=== PATIENT | male | born 1960 | race Caucasian/White ===

== ENCOUNTER 2017-12-12 11:39 | Inpatient (IN) ==
[2017-12-12] MEDS ORDERED: ONDANSETRON 4 MG/2 ML VIAL IV PRN (15:38)
[2017-12-12] MEDS ORDERED: MORPHINE 4 MG/1 ML VIAL IV PRN (15:38)
[2017-12-12] MEDS: hydrALAZINE 20 MG/1 ML VIAL IV PRN (16:31)
[2017-12-12] MEDS: CARVEDILOL 6.25 MG TABLET PO SCH ×2 (16:31→20:57)
[2017-12-12] MEDS: ACETAMINOPHEN 325 MG TABLET PO PRN ×2 (16:37→20:56)
[2017-12-12 17:06] LABS: Basophils # 0.1 10*3/uL (0.0-0.2); Basophils % 0.8 % (0.0-0.8); Eosinophils # 0.1 10*3/uL (0.0-0.87); Eosinophils % 1.5 % (0.00-10.9); Hematocrit 43.2 VOL% (42.0-52.0); Hemoglobin 14.5 GM/DL (14.0-18.0); Immature Granulocytes % 0.3 %; Immature Granulocytes Absolute 0.03 #; Lymphocytes # 1.1 10*3/uL (1.4-4.0); Lymphocytes % 12.2 % (21.2-54.2); Mean Corpuscular HGB Conc 33.6 GM/DL (32-36); Mean Corpuscular Hemoglobin 30 PG (27-34); Mean Corpuscular Volume 89.1 FL (87-102); Mean Platelet Volume 12.3 FL (9.6-12.0); Monocytes # 0.7 10*3/uL (0.11-0.8); Monocytes % 7.4 % (1.7-12.7); Neutrophils # 7.1 10*3/uL (1.4-7.4); Neutrophils % 77.8 % (38.7-73.9); Platelet Count 190 T/CUMM (130-400); Red Blood Count 4.85 MC/CUMM (3.8-5.5); Red Cell Distribution Width 13.9 % (9.3-17.3); White Blood Count 9.1 T/CUMM (4-12)
[2017-12-12 17:21] LABS: Apearance,Urine CLEAR (Clear); Bilirubin,Urine Negative (Negative); Blood, Urine Negative (Negative); Glucose,Urine (UA) Negative (Negative); Hyaline Casts,Urine 3 /LPF (0-3); Ketones,Urine Negative (Negative); Nitrite,Urine Negative (Negative); Protein,Urine Negative; RBC,Urine <1 /HPF (0-4); Urine Color Straw (Yellow); Urine Specific Gravity 1.005 (1.001-1.035); Urine Urobilinogen < 2.0 EU/DL (0.2-1.0); WBC,Urine 1 /HPF (0-6)
[2017-12-12 17:31] LABS: CKMB % 1.9 %
[2017-12-12 17:32] LABS: Troponin I Only 0.087 NG/ML (0.00-0.045)
[2017-12-12 17:38] LABS: Bilirubin,Total 1.4 MG/DL (0.2-1.0); Calcium 8.6 MG/DL (8.5-10.1); Osmolality,Calculated 288.1 MOS/KG (273-304); Potassium 3.4 MMOL/L (3.5-5.1); Risk Ratio 3.13; Thyroid Stimulating Hormone 2.91 uIU/ml (0.358-3.74); Total Protein 6.6 G/DL (6.4-8.3)
[2017-12-12] MEDS ORDERED: MAGNESIUM SULF RIDER 2 GM in PREMIX 1 EACH IV PRN (18:13)
[2017-12-12] MEDS ORDERED: POTASSIUM CHLORIDE RIDER 10 MEQ in PREMIX 1 EACH IV PRN (18:13)
[2017-12-12] MEDS ORDERED: MAGNESIUM SULF RIDER 4 GM in PREMIX 1 EACH IV PRN (18:13)
[2017-12-12] MEDS: POTASSIUM CHLORIDE 20 MEQ TABLET PO PRN ×2 (18:18→23:05)
[2017-12-12] MEDS: LISINOPRIL 5 MG TABLET PO SCH (20:57)
[2017-12-12] MEDS: ACETAMINOPHEN 500 MG TABLET PO SCH (21:54)
[2017-12-12 22:53] LABS: CKMB % 1.7 %
[2017-12-12 22:57] LABS: Troponin I Only 0.089 NG/ML (0.00-0.045)
[2017-12-13] MEDS: POTASSIUM CHLORIDE 20 MEQ TABLET PO PRN (00:55)
[2017-12-13] MEDS: ACETAMINOPHEN 500 MG TABLET PO SCH ×4 (04:58→21:11)
[2017-12-13 05:45] LABS: Basophils # 0.1 10*3/uL (0.0-0.2); Eosinophils # 0.3 10*3/uL (0.0-0.87); Eosinophils % 3.1 % (0.00-10.9); Hematocrit 44.3 VOL% (42.0-52.0); Hemoglobin 14.5 GM/DL (14.0-18.0); Immature Granulocytes % 0.5 %; Immature Granulocytes Absolute 0.04 #; Lymphocytes # 0.9 10*3/uL (1.4-4.0); Lymphocytes % 10.7 % (21.2-54.2); Mean Corpuscular HGB Conc 32.7 GM/DL (32-36); Mean Corpuscular Hemoglobin 30 PG (27-34); Mean Corpuscular Volume 91.5 FL (87-102); Mean Platelet Volume 12.2 FL (9.6-12.0); Monocytes # 0.7 10*3/uL (0.11-0.8); Monocytes % 7.9 % (1.7-12.7); Neutrophils # 6.4 10*3/uL (1.4-7.4); Neutrophils % 76.8 % (38.7-73.9); Platelet Count 227 T/CUMM (130-400); Red Blood Count 4.84 MC/CUMM (3.8-5.5); White Blood Count 8.4 T/CUMM (4-12)
[2017-12-13 06:12] LABS: CKMB % 1.9 %
[2017-12-13 06:13] LABS: Troponin I Only 0.066 NG/ML (0.00-0.045)
[2017-12-13 06:17] LABS: Calcium 8.6 MG/DL (8.5-10.1); Osmolality,Calculated 289.1 MOS/KG (273-304); Potassium 4.8 MMOL/L (3.5-5.1)
[2017-12-13] MEDS: ENOXAPARIN 40 MG/0.4 ML SYRINGE SUBCUT SCH (08:23)
[2017-12-13] MEDS: ASPIRIN 325 MG TABLET PO SCH (08:23)
[2017-12-13] MEDS: MULTIVITAMIN (CENTRUM) TABLET PO SCH (08:23)
[2017-12-13] MEDS: CARVEDILOL 6.25 MG TABLET PO SCH ×2 (08:23→21:11)
[2017-12-13] MEDS: PANTOPRAZOLE 40 MG TABLET PO SCH (08:23)
[2017-12-13] MEDS: LISINOPRIL 5 MG TABLET PO SCH ×2 (08:23→21:11)
[2017-12-13] MEDS: FUROSEMIDE 40 MG/4 ML VIAL IV SCH ×2 (08:25→15:55)
[2017-12-13] MEDS: hydrALAZINE 20 MG/1 ML VIAL IV PRN (16:34)
[2017-12-14] MEDS: ACETAMINOPHEN 500 MG TABLET PO SCH ×4 (05:07→21:37)
[2017-12-14 05:59] LABS: Basophils # 0.1 10*3/uL (0.0-0.2); Basophils % 0.9 % (0.0-0.8); Eosinophils # 0.2 10*3/uL (0.0-0.87); Eosinophils % 2.8 % (0.00-10.9); Hematocrit 45.8 VOL% (42.0-52.0); Hemoglobin 14.6 GM/DL (14.0-18.0); Immature Granulocytes % 0.5 %; Immature Granulocytes Absolute 0.04 #; Lymphocytes % 12.9 % (21.2-54.2); Mean Corpuscular HGB Conc 31.9 GM/DL (32-36); Mean Corpuscular Hemoglobin 30 PG (27-34); Mean Corpuscular Volume 93.3 FL (87-102); Mean Platelet Volume 11.4 FL (9.6-12.0); Monocytes # 0.6 10*3/uL (0.11-0.8); Monocytes % 8.1 % (1.7-12.7); Neutrophils # 5.9 10*3/uL (1.4-7.4); Neutrophils % 74.8 % (38.7-73.9); Platelet Count 239 T/CUMM (130-400); Red Blood Count 4.91 MC/CUMM (3.8-5.5); Red Cell Distribution Width 13.9 % (9.3-17.3); White Blood Count 7.9 T/CUMM (4-12)
[2017-12-14 06:21] LABS: Calcium 8.4 MG/DL (8.5-10.1); Osmolality,Calculated 289.3 MOS/KG (273-304); Potassium 4.2 MMOL/L (3.5-5.1)
[2017-12-14] MEDS: CARVEDILOL 6.25 MG TABLET PO SCH (09:09)
[2017-12-14] MEDS: LISINOPRIL 5 MG TABLET PO SCH ×2 (09:09→21:37)
[2017-12-14] MEDS: MULTIVITAMIN (CENTRUM) TABLET PO SCH (09:09)
[2017-12-14] MEDS: ASPIRIN 325 MG TABLET PO SCH (09:09)
[2017-12-14] MEDS: PANTOPRAZOLE 40 MG TABLET PO SCH (09:10)
[2017-12-14] MEDS: ENOXAPARIN 40 MG/0.4 ML SYRINGE SUBCUT SCH (09:16)
[2017-12-14] MEDS: FUROSEMIDE 40 MG/4 ML VIAL IV SCH ×2 (09:18→15:51)
[2017-12-14] MEDS ORDERED: MAGNESIUM SULF RIDER 2 GM in PREMIX 1 EACH IV PRN (12:34)
[2017-12-14] MEDS ORDERED: POTASSIUM CHLORIDE RIDER 10 MEQ in PREMIX 1 EACH IV PRN (12:34)
[2017-12-14 13:34] LABS: CKMB % 1.7 %; Troponin I Only 0.042 NG/ML (0.00-0.045)
[2017-12-14] MEDS: NITROGLYCERIN 2% OINT 1 INCH/GM PACK TOP SCH (17:20)
[2017-12-14 19:50] LABS: Troponin I Only 0.045 NG/ML (0.00-0.045)
[2017-12-14] MEDS: METOPROLOL TARTRATE 25 MG TABLET PO SCH (21:37)
[2017-12-15] MEDS: NITROGLYCERIN 2% OINT 1 INCH/GM PACK TOP SCH ×3 (00:27→11:02)
[2017-12-15 01:02] LABS: Basophils # 0.1 10*3/uL (0.0-0.2); Basophils % 1.1 % (0.0-0.8); Eosinophils # 0.3 10*3/uL (0.0-0.87); Eosinophils % 3.9 % (0.00-10.9); Hematocrit 44.8 VOL% (42.0-52.0); Hemoglobin 14.5 GM/DL (14.0-18.0); Immature Granulocytes % 0.4 %; Immature Granulocytes Absolute 0.03 #; Lymphocytes # 1.2 10*3/uL (1.4-4.0); Lymphocytes % 15.2 % (21.2-54.2); Mean Corpuscular HGB Conc 32.4 GM/DL (32-36); Mean Corpuscular Hemoglobin 30 PG (27-34); Mean Corpuscular Volume 93.1 FL (87-102); Mean Platelet Volume 11.4 FL (9.6-12.0); Monocytes # 0.8 10*3/uL (0.11-0.8); Monocytes % 10.1 % (1.7-12.7); Neutrophils # 5.6 10*3/uL (1.4-7.4); Neutrophils % 69.3 % (38.7-73.9); Platelet Count 252 T/CUMM (130-400); Red Blood Count 4.81 MC/CUMM (3.8-5.5); Red Cell Distribution Width 13.7 % (9.3-17.3); White Blood Count 8.1 T/CUMM (4-12)
[2017-12-15 01:29] LABS: Troponin I Only 0.038 NG/ML (0.00-0.045)
[2017-12-15 01:32] LABS: Calcium 8.1 MG/DL (8.5-10.1); Osmolality,Calculated 286.3 MOS/KG (273-304)
[2017-12-15] MEDS: ACETAMINOPHEN 500 MG TABLET PO SCH ×4 (04:30→21:01)
[2017-12-15] MEDS ORDERED: DIAZEPAM 5 MG TABLET PO ONE ×2 (06:00→13:30)
[2017-12-15] MEDS ORDERED: diphenhydrAMINE CAP 25 MG CAPSULE PO ONE ×2 (06:00→13:30)
[2017-12-15] MEDS: ASPIRIN 325 MG TABLET PO SCH (09:18)
[2017-12-15] MEDS: ENOXAPARIN 40 MG/0.4 ML SYRINGE SUBCUT SCH (09:18)
[2017-12-15] MEDS: PANTOPRAZOLE 40 MG TABLET PO SCH (09:19)
[2017-12-15] MEDS: MULTIVITAMIN (CENTRUM) TABLET PO SCH (09:19)
[2017-12-15] MEDS: LISINOPRIL 5 MG TABLET PO SCH ×2 (09:19→21:00)
[2017-12-15] MEDS: METOPROLOL TARTRATE 25 MG TABLET PO SCH (09:19)
[2017-12-15] MEDS: FUROSEMIDE 40 MG/4 ML VIAL IV SCH (09:20)
[2017-12-15] MEDS ORDERED: diphenhydrAMINE CAP 50 MG CAPSULE ONE (13:20)
[2017-12-15] MEDS ORDERED: DIAZEPAM 5 MG TABLET ONE (13:21)
[2017-12-15] MEDS ORDERED: HEPARIN/NACL 0.9% 2 UNITS/ML 1,000 ML IV ONE (14:05)
[2017-12-15] MEDS ORDERED: LIDOCAINE 1% 20 ML VIAL ONE (14:05)
[2017-12-15] MEDS ORDERED: fentaNYL 100 MCG/2 ML VIAL ONE (14:27)
[2017-12-15] MEDS ORDERED: MIDAZOLAM 2 MG/2 ML VIAL ONE ×2 (14:27→14:46)
[2017-12-15] MEDS ORDERED: hydrALAZINE 20 MG/1 ML VIAL ONE (15:17)
[2017-12-15] MEDS ORDERED: ACETAMINOPHEN/CODEINE 300-30 MG TABLET PO PRN (15:18)
[2017-12-15] MEDS ORDERED: fentaNYL 100 MCG/2 ML VIAL IV PRN (15:18)
[2017-12-15] MEDS: CARVEDILOL 12.5 MG TABLET PO SCH (21:01)
[2017-12-16] MEDS: ACETAMINOPHEN 500 MG TABLET PO SCH ×2 (04:53→09:22)
[2017-12-16 06:00] LABS: Basophils # 0.1 10*3/uL (0.0-0.2); Basophils % 0.9 % (0.0-0.8); Eosinophils # 0.2 10*3/uL (0.0-0.87); Eosinophils % 2.5 % (0.00-10.9); Hematocrit 45.9 VOL% (42.0-52.0); Hemoglobin 14.7 GM/DL (14.0-18.0); Immature Granulocytes % 0.3 %; Immature Granulocytes Absolute 0.02 #; Lymphocytes # 0.7 10*3/uL (1.4-4.0); Lymphocytes % 11.1 % (21.2-54.2); Mean Corpuscular Hemoglobin 29 PG (27-34); Mean Corpuscular Volume 91.6 FL (87-102); Mean Platelet Volume 11.7 FL (9.6-12.0); Monocytes # 0.7 10*3/uL (0.11-0.8); Monocytes % 10.9 % (1.7-12.7); Neutrophils # 4.8 10*3/uL (1.4-7.4); Neutrophils % 74.3 % (38.7-73.9); Platelet Count 248 T/CUMM (130-400); Red Blood Count 5.01 MC/CUMM (3.8-5.5); Red Cell Distribution Width 13.8 % (9.3-17.3); White Blood Count 6.5 T/CUMM (4-12)
[2017-12-16 06:10] LABS: Calcium 7.8 MG/DL (8.5-10.1); Osmolality,Calculated 284.3 MOS/KG (273-304); Potassium 4.5 MMOL/L (3.5-5.1)
[2017-12-16] MEDS ORDERED: FUROSEMIDE 40 MG TABLET PO SCH (09:00)
[2017-12-16] MEDS ORDERED: LISINOPRIL 10 MG TABLET PO SCH (09:00)
[2017-12-16] MEDS: ASPIRIN 325 MG TABLET PO SCH (09:22)
[2017-12-16] MEDS: PANTOPRAZOLE 40 MG TABLET PO SCH (09:22)
[2017-12-16] MEDS: CARVEDILOL 12.5 MG TABLET PO SCH (09:22)
[2017-12-16] MEDS: MULTIVITAMIN (CENTRUM) TABLET PO SCH (09:22)
[2017-12-16] MEDS: ENOXAPARIN 40 MG/0.4 ML SYRINGE SUBCUT SCH (09:23)
[2017-12-16 12:25] VITALS: BP 139/96
== END 2017-12-16 13:28 | disposition home or self-care (01) | DRG 287 ==
LOC: SUATTDRO 15:36 → N.TELEN 15:36
PROVIDERS: ADMIT Internal Medicine Geriatric Medicine; ATTEND Internal Medicine
PROC: CLCCHCL (ICD-10-PCS; 2017-12-15 14:45)